=== PATIENT | male | born 2000 ===

== ENCOUNTER → 2025-08-14 | Outpatient (CLI) | payer SELFPAY ==
[2025-08-14 15:41] LABS: Source, Urine Clean Catch
[2025-08-14 15:53] LABS: Anion Gap 12.0 mmol/L (3-11); Blood Urea Nitrogen 7.0 mg/dL (8-24); CO2, Blood 30.0 mmol/L (21-32); Calcium, Blood 9.5 mg/dL (8.5-10.1); Chloride, Blood 101.0 mmol/L (98-108); Creatinine, Blood 0.96 mg/dL (0.60-1.20); Glucose, Blood 102.0 mg/dL (70-99); Potassium, Blood 3.6 mmol/L (3.5-5.5); Sodium, Blood 139.0 mmol/L (136-145)
[2025-08-14 15:56] LABS: RBC Cast 0-2 /lpf (0); Red Blood Cells, Urine TNTC /hpf (0-2); White Blood Cells, Urine 0-2 /hpf (0-5)
== END ==
LOC: LAB 15:39 → LAB SHORT 15:39
PROVIDERS: Physician Assistant Medical
DX: R31.0 Gross hematuria (principal)
CPT/HCPCS: 80048; 81015; 82550